=== PATIENT | male | born 1980 | race Caucasian/White ===

== ENCOUNTER → 2017-07-27 | Emergency (ER) | payer OTHER ==
[~2017-07-27] VITALS: Ht 195.6 cm; Wt 127.0 kg
[~2017-07-27] MED LIST: BACTRIM DS TAB1 EACH PO; CEPHALEXIN500 MG PO; IBUPROFEN600 MG PO; KEFLEX500 MG PO
== END ==
LOC: ED 18:26
DX: L03.116 Cellulitis of left lower limb (principal); Z87.891 Personal history of nicotine dependence
CPT/HCPCS: 99283

== ENCOUNTER 2020-02-08 12:14 | Emergency (ER) | payer OTHER ==
[~2020-02-08] VITALS: Ht 195.6 cm; Wt 127.0 kg
[2020-02-08] MEDS ORDERED: CLEOCIN HCL300 MG PO (12:49)
== END 2020-02-08 13:12 | disposition home or self-care (01) ==
LOC: ED 12:14
DX: L03.115 Cellulitis of right lower limb (principal); I10 Essential (primary) hypertension; F17.200 Nicotine dependence, unspecified, uncomplicated
CPT/HCPCS: 99283; A9270